=== PATIENT | male | born 1945 | race Caucasian/White ===

== ENCOUNTER 2022-09-14 14:04 | Day surgery (SDC) | payer OTHER ==
[~2022-09-14] VITALS: Ht 165.1 cm; Wt 83.4 kg
[2022-09-14] MEDS ORDERED: JARDIANCE25 MG PO (14:51)
[2022-09-14] MEDS ORDERED: ATOR10 PO (14:51)
[2022-09-14] MEDS ORDERED: AMLO5 PO (14:51)
[2022-09-14] MEDS ORDERED: METF500 PO (14:52)
[2022-09-14] MEDS ORDERED: EUTHYROX125 MCG PO (14:52)
[2022-09-14] MEDS ORDERED: BASAGLAR K100 UNIT/1 SC (14:52)
[2022-09-14] MEDS ORDERED: ROPI1 PO (14:53)
[2022-09-14] MEDS ORDERED: OMEP20ER PO (14:53)
[2022-09-14] MEDS ORDERED: TRAZ50 PO (14:53)
== END 2022-09-14 16:16 | disposition home or self-care (01) ==
LOC: ORSCSDS 14:04
PROVIDERS: Ophthalmology
PROC: 08RK3JZ Replacement of Left Lens with Synthetic Substitute, Percutaneous Approach (ICD-10-PCS; principal; 2022-09-14 15:30)
DX: H25.12 Age-related nuclear cataract, left eye (principal); H21.81 Floppy iris syndrome; I10 Essential (primary) hypertension; E11.9 Type 2 diabetes mellitus without complications; E03.9 Hypothyroidism, unspecified; Z79.899 Other long term (current) drug therapy; Z87.891 Personal history of nicotine dependence
CPT/HCPCS: 82947; J2001; J2250; J3010; J3301; J7040; V2632

== ENCOUNTER 2024-04-29 02:43 | Emergency (ER) | payer OTHER ==
[~2024-04-29] VITALS: Ht 165.1 cm; Wt 72.6 kg
[~2024-04-29 02:43] MED LIST: AMLO5 PO; ATOR10 PO; BASAGLAR K100 UNIT/1 SC; EUTHYROX125 MCG PO; JARDIANCE25 MG PO; METF500 PO; OMEP20ER PO; ROPI1 PO; TRAZ50 PO
[2024-04-29] MEDS ORDERED: Lactated Ringer's 1,000 ML IV ONE (03:10)
[2024-04-29 03:31] LABS: BASOPHILS ABSOLUTE AUTO 0.08 K/mm3 (0.00-0.23); BASOPHILS PERCENT AUTO 1 % (0-2); EOSINOPHILS ABSOLUTE AUTO 0.32 K/mm3 (0.00-0.68); EOSINOPHILS PERCENT AUTO 5 % (0-6); Hematocrit 41.5 % (37.0-53.0); IMMATURE GRAN ABSOLUTE AUTO 0.04 K/mm3 (0.00-0.10); IMMATURE GRAN PERCENT AUTO 1 % (0-1); LYMPHOCYTES ABSOLUTE AUTO 2.31 K/mm3 (0.84-5.20); LYMPHOCYTES PERCENT AUTO 35 % (21-46); MONOCYTES PERCENT AUTO 11 % (4-13); Mean Corpuscular HGB 32.2 pg (26.0-34.0); Mean Corpuscular HGB Conc 33.7 g/dL (31.5-36.5); Mean Corpuscular Volume 95 fL (80-100); Mean Platelet Volume 10.9 fL (9.1-12.4); NEUTROPHILS ABSOLUTE AUTO 3.21 K/mm3 (1.96-9.15); NEUTROPHILS PERCENT AUTO 48 % (41-73); Platelet Count 184 K/mm3 (150-400); RDW Coefficient Variation 12.2 % (11.7-14.2); Red Blood Cell Count 4.35 M/mm3 (4.30-5.90); White Blood Cell Count 6.66 K/mm3 (4.00-11.30)
[2024-04-29] MEDS ORDERED: Primidone50 MG PO (03:34)
[2024-04-29] MEDS ORDERED: ASPI81CH PO (03:35)
[2024-04-29 03:38] LABS: Albumin, Blood 3.7 g/dL (3.4-5.0); Albumin/Globulin Ratio 1.2 (0.8-1.8); Bilirubin, Total 0.9 mg/dL (0.1-1.0); Bun/Creatinine Ratio 15.3 (12.0-20.0); Calcium, Blood 9.5 mg/dL (8.5-10.1); Creatinine, Blood 1.11 mg/dL (0.60-1.20); Magnesium, Blood 1.7 mg/dL (1.6-2.4); Potassium, Blood 4.5 mmol/L (3.5-5.5); Total Protein, Blood 6.7 g/dL (6.4-8.2)
[2024-04-29 04:12] LABS: Influenza A, PCR NEGATIVE (NEGATIVE); Influenza B, PCR NEGATIVE (NEGATIVE); Resp Syncytial Virus, PCR NEGATIVE (NEGATIVE); SARS-Cov-2 (COVID-19) PCR, MMC NEGATIVE (NEGATIVE)
[2024-04-29 05:26] LABS: Source, Urine Clean Catch
[2024-04-29 05:34] LABS: Bilirubin, Urine Neg (Neg); Blood, Urine Neg (Neg); Glucose Qualitative, Urine 4+ (Neg); Ketones, Urine 3+ (Neg); Leukocyte Esterase, Urine Neg (Neg); Nitrite, Urine Neg (Neg); Protein, Urine 2+ (Neg); Specific Gravity, Urine 1.015 (1.003-1.022); Urobilinogen, Urine NORM (Normal)
[2024-04-29 05:42] LABS: Appearance, Urine Clear (Clear); Color, Urine Yellow (P-Yellow)
[2024-04-29 05:45] LABS: Bacteria Rare /hpf; Hyaline Casts 0-2 /lpf (0-2); Red Blood Cells, Urine Not Seen /hpf (0-2); Squamous Epithelial Cells Few /hpf (Few); White Blood Cells, Urine 0-2 /hpf (0-5)
== END 2024-04-29 08:32 | disposition home or self-care (01) ==
LOC: ER 02:43
PROVIDERS: Student in an Organized Health Care Education/Training Program
DX: R42 Dizziness and giddiness (principal); R55 Syncope and collapse; I10 Essential (primary) hypertension; E78.5 Hyperlipidemia, unspecified; E11.9 Type 2 diabetes mellitus without complications; K21.9 Gastro-esophageal reflux disease without esophagitis; E03.9 Hypothyroidism, unspecified; G47.00 Insomnia, unspecified; Z79.4 Long term (current) use of insulin; Z79.84 Long term (current) use of oral hypoglycemic drugs; Z79.899 Other long term (current) drug therapy
CPT/HCPCS: 0241U; 70450; 71045; 80053; 81001; 83735; 84484; 85025; 93005; 93010; 96360; 99285-25; J7120

== ENCOUNTER 2025-04-14 22:36 | Observation (INO) | payer OTHER ==
[~2025-04-14] VITALS: Ht 165 cm; Wt 79.4 kg
[~2025-04-14 22:36] MED LIST changes: +ASPI81CH PO; -EUTHYROX125 MCG PO; +LEVSOD137 PO; +Primidone50 MG PO
[2025-04-14 22:52] LABS: BASOPHILS ABSOLUTE AUTO 0.10 K/mm3 (0.00-0.23); BASOPHILS PERCENT AUTO 1 % (0-2); EOSINOPHILS ABSOLUTE AUTO 0.31 K/mm3 (0.00-0.68); EOSINOPHILS PERCENT AUTO 4 % (0-6); Hematocrit 38.6 % (37.0-53.0); Hemoglobin 13.3 g/dL (13.5-17.5); IMMATURE GRAN ABSOLUTE AUTO 0.06 K/mm3 (0.00-0.10); IMMATURE GRAN PERCENT AUTO 1 % (0-1); LYMPHOCYTES ABSOLUTE AUTO 2.49 K/mm3 (0.84-5.20); LYMPHOCYTES PERCENT AUTO 29 % (21-46); MONOCYTES ABSOLUTE AUTO 0.91 K/mm3 (0.16-1.47); MONOCYTES PERCENT AUTO 10 % (4-13); Mean Corpuscular HGB Conc 34.5 g/dL (31.5-36.5); Mean Corpuscular Volume 93 fL (80-100); NEUTROPHILS ABSOLUTE AUTO 4.88 K/mm3 (1.96-9.15); NEUTROPHILS PERCENT AUTO 56 % (41-73); NRBC ABSOLUTE 0.00 K/mm3 (0.00-0.02); NRBC Auto 0.0 /100 WBC (0.0-0.2); Platelet Count 187 K/mm3 (150-400); RDW Coefficient Variation 12.5 % (11.7-14.2); RDW Standard Deviation 43.0 fL (35.1-46.3)
[2025-04-14] MEDS ORDERED: NS 1,000 ML IV ONE (23:24)
[2025-04-14] MEDS ORDERED: NS 1,000 ML IV SCH ×2 (23:25→23:35)
[2025-04-14 23:34] LABS: Anion Gap 11.0 mmol/L (3-11); Blood Urea Nitrogen 19.0 mg/dL (8-24); CO2, Blood 23.0 mmol/L (21-32); Calcium, Blood 8.9 mg/dL (8.5-10.1); Chloride, Blood 107.0 mmol/L (98-108); Creatinine, Blood 1.2 mg/dL (0.60-1.20); Glucose, Blood 181.0 mg/dL (70-99); Magnesium, Blood 1.8 mg/dL (1.6-2.4); Potassium, Blood 3.9 mmol/L (3.5-5.5); Sodium, Blood 137.0 mmol/L (136-145); Thyroid Stimulating Hormone 26.6 uIU/mL (0.360-4.800)
[2025-04-15] VITALS (7 sets, daily range): BP systolic 119–146; BP diastolic 62–81
[2025-04-15] MEDS ORDERED: FLU VACC TS2025-26(6MOS UP)/PF 45 MCG/0.5 ML SYRINGE IM SCH (01:00)
[2025-04-15] MEDS ORDERED: Ondansetron HCl 2 MG / ML 2ML Vial IV PRN (01:00)
[2025-04-15] MEDS ORDERED: NS 1,000 ML IV ONE (01:00)
[2025-04-15] MEDS ORDERED: Potassium Chl 20MEQ/Water100ML 100 ML IV STA (01:13)
[2025-04-15] MEDS ORDERED: Mag Sulfate 1 GM/D5% 100ML 100 ML IV STA (01:13)
[2025-04-15 01:22] LABS: Phosphorus, Blood 3.5 mg/dL (2.5-4.9)
[2025-04-15 03:38] LABS: Source, Urine Clean Catch
[2025-04-15 03:56] LABS: Bilirubin, Urine Neg (Neg); Glucose Qualitative, Urine 4+ (Neg); Ketones, Urine 3+ (Neg); Leukocyte Esterase, Urine Neg (Neg); Protein, Urine 1+ (Neg); Specific Gravity, Urine 1.015 (1.003-1.022); Urobilinogen, Urine NORM (Normal)
[2025-04-15 03:58] LABS: Color, Urine Yellow (P-Yellow)
--- NOTE | 2025-04-15 04:34 | NUR ---
PATIENT ADMITTED FROM ER VIA STRETCHER ACCOMPANIED BY , AND SON, DENIES PAIN AND DISCOMFORT AT THE PRESENT TIME, ALERT AND ORIENTED X4, TELEMETRY PLACED PER DOCTOR ORDER, VOIDING CLEAR YELLOW URINE PER URINAL, URINE SENT TO LAB FOR UA AND DRUG SCREEN, LUNGS CLEAR, ABD NONDISTENDED, SOFT, BOWEL SOUNDS NORMAL IN ALL 4 QUADRANTS, AMBULATES WITH STAND BY ASSIST, USES CANE, BLOOD SUGAR MONITORED PER DOCTOR ORDERS, CALL LIGHT IN REACH , BED ALARM ON FALL PRECAUTIONS EXPLAINED TO PATIENT AND FAMILY DUE TO RECENT FALL AT HOME, BED IN LOW AND LOCKED POSITION, WILL CONTINUE TO MONITOR.
[2025-04-15] MEDS ORDERED: Potassium Chloride 10 Meq Tablet SA PO ONE (04:40)
[2025-04-15 04:49] LABS: U Amphetamine Screen Not Detected; U Barbituate Screen Not Detected; U Benzodiazapine Screen Not Detected; U Buprenorphine Screen Not Detected; U Cannabinoids Screen Not Detected; U Cocaine Screen Not Detected; U Methadone Screen Not Detected; U Methamphetamine Screen Not Detected; U Opiates Screen DETECTED; U Oxycodone Screen Not Detected; U Phencyclidine Screen Not Detected
--- NOTE | 2025-04-15 05:11 | NUR ---
PATIENT COMFORTABLY IN BED, COMFORT CARE ORDERS IN PLACE, FAMILY AT BEDSIDE, ANSWERED FAMILY QUESTIONS NEEDED, PAIN AND ANXIETY CONTROLLED WITH MEDICATION PER ORDERS, LUNG DIMINISHED, DRY OCCASSIONAL COUGH, REPOSITIONS FAMILY REQUESTS FOR COMFORT, RESP 8-10 A MIN, PAUSES NOTED THROUGHOUT THE NIGHT, CALL LIGHT IN FAMILY REACH, BED IN LOW AND LOCKED POSITON. WILL CONTINUE TO MONITOR.
[2025-04-15] MEDS ORDERED: Insulin Human Lispro 100 Units/ML 3ML Syringe SC SCH (07:30)
[2025-04-15] MEDS ORDERED: Cosyntropin 0.25 MG / ML 1ML Vial IV ONE (08:00)
[2025-04-15 08:09] LABS: BASOPHILS ABSOLUTE AUTO 0.06 K/mm3 (0.00-0.23); BASOPHILS PERCENT AUTO 1 % (0-2); EOSINOPHILS ABSOLUTE AUTO 0.13 K/mm3 (0.00-0.68); EOSINOPHILS PERCENT AUTO 2 % (0-6); Hematocrit 38.7 % (37.0-53.0); Hemoglobin 13.5 g/dL (13.5-17.5); IMMATURE GRAN ABSOLUTE AUTO 0.04 K/mm3 (0.00-0.10); IMMATURE GRAN PERCENT AUTO 1 % (0-1); LYMPHOCYTES ABSOLUTE AUTO 1.68 K/mm3 (0.84-5.20); LYMPHOCYTES PERCENT AUTO 21 % (21-46); MONOCYTES ABSOLUTE AUTO 0.75 K/mm3 (0.16-1.47); MONOCYTES PERCENT AUTO 9 % (4-13); Mean Corpuscular HGB Conc 34.9 g/dL (31.5-36.5); Mean Corpuscular Volume 94 fL (80-100); NEUTROPHILS ABSOLUTE AUTO 5.37 K/mm3 (1.96-9.15); NEUTROPHILS PERCENT AUTO 67 % (41-73); NRBC ABSOLUTE 0.00 K/mm3 (0.00-0.02); NRBC Auto 0.0 /100 WBC (0.0-0.2); Platelet Count 166 K/mm3 (150-400); RDW Coefficient Variation 12.6 % (11.7-14.2); RDW Standard Deviation 43.3 fL (35.1-46.3)
[2025-04-15 08:23] LABS: Alanine Aminotransfer (ALT/SGP 22.0 U/L (12-78); Albumin, Blood 3.6 g/dL (3.4-5.0); Albumin/Globulin Ratio 1.3 (0.8-1.8); Anion Gap 10.0 mmol/L (3-11); Aspartate Aminotrans (AST/SGOT 18.0 U/L (12-37); Bilirubin, Total 0.7 mg/dL (0.1-1.0); Blood Urea Nitrogen 17.0 mg/dL (8-24); CO2, Blood 24.0 mmol/L (21-32); Calcium, Blood 8.9 mg/dL (8.5-10.1); Chloride, Blood 106.0 mmol/L (98-108); Creatinine, Blood 1.01 mg/dL (0.60-1.20); Globulin, Blood 2.7 g/dL (2.2-4.0); Glucose, Blood 147.0 mg/dL (70-99); Potassium, Blood 4.3 mmol/L (3.5-5.5); Sodium, Blood 136.0 mmol/L (136-145); Total Protein, Blood 6.3 g/dL (6.4-8.2)
[2025-04-15] MEDS ORDERED: Enoxaparin 40 MG/0.4 ML SYR SC SCH (09:00)
--- NOTE | 2025-04-15 19:34 | NUR ---
SHIFT SUMMARY PT A&OX4, PLEASANT AND COOPERATIVE WITH CARE. PT DENIED DIZZINESS TODAY, ORTHOSTATIC BP NEGATIVE. IV FLUIDS DC. ECHO ORDERED MOST LIKELY TO BE DONE TOMORROW. VSS, SR IN 60S ON TELE. ABLE TO MAKE NEEDS KNOWN, CALL LIGHT IN REACH, SBA FOR SAFETY IN ROOM.
[2025-04-15] MEDS ORDERED: Insulin Glargine 100 Unit/ML 3 ML SYR SC SCH (21:00)
[2025-04-16 00:21] VITALS: BP 148/76
[2025-04-16 03:31] VITALS: BP 157/89
--- NOTE | 2025-04-16 05:30 | NUR ---
Shift Summary AOx4. Pleasant. Does not call for needs, instead, sets the bed alarm off all the time when he has to go urinate. Denies pain. Awaiting ECHO today. Tele: [id number] [phone]. Denies chest pain, shortness of breath. 1PA w/ FWW. Bed alarm on d/t impulsivity and + for syncope.
[2025-04-16 06:43] LABS: Anion Gap 9.0 mmol/L (3-11); Blood Urea Nitrogen 16.0 mg/dL (8-24); CO2, Blood 24.0 mmol/L (21-32); Calcium, Blood 9.0 mg/dL (8.5-10.1); Chloride, Blood 109.0 mmol/L (98-108); Creatinine, Blood 1.16 mg/dL (0.60-1.20); Glucose, Blood 158.0 mg/dL (70-99); Potassium, Blood 3.5 mmol/L (3.5-5.5); Sodium, Blood 138.0 mmol/L (136-145)
[2025-04-16 07:42] VITALS: BP 143/74
--- NOTE | 2025-04-16 10:53 | NUR ---
NOTE: SPOKE WITH THE PT'S , SHE IS UPSET THAT THE ECHO HAS NOT BEEN DONE YET AND THAT THE ORDER WAS PLACED YESTERDAY AFTERNOON. THIS NURSE LISTENED TO HER CONCERNS AND THE DOCTOR WAS NOTIFIED. THE [facility] WAS CONTACTED AND CONFIRMED THE ORDER FOR THE ECHO IS PLACED. THIS NURSE UPDATED THE PT ON THIS INFORMATION. THE BREAK NURSE ATTEMPTED TO CONTACT THE PT ADVOCATE THE STATED SHE WOULD BE INTERESTED IN SPEAKING TO HER. A MESSAGE WAS LEFT ON HER PHONE REGARDING THE REQUEST.
[2025-04-16 11:23] VITALS: BP 143/67
[2025-04-16] MEDS ORDERED: Vitamin and Mi1 EACH PO (14:46)
[2025-04-16] MEDS ORDERED: HYDR1TAB94 PO (14:46)
[2025-04-16] MEDS ORDERED: FISH OIL 1,0001 EA10 PO (14:47)
[2025-04-16] MEDS ORDERED: MAGNESIUM OXID500 MG PO (14:47)
[2025-04-16 16:20] VITALS: BP 127/76
--- NOTE | 2025-04-16 17:41 | NUR ---
SHIFT SUMMARY PT AOX4, SBA TO THE BR. BA ON. NO EVENTS PER TELE. ECHO DONE TODAY, CARDIOLOGY CONSULT TOMORROW. PT WANTED TO LEAVE ONCE THE ECHO WAS READ BUT IT WAS NOT READ UNTIL LATE IN THE SHIFT. HIS WAS UPSET WITH THIS BUT HE DECIDED TO STAY SO HE COULD HAVE THE CONSULT. PT CALLS AND MAKES HIS NEEDS KNOWN. REPOSITIONS SELF IN BED. CALL LIGHT WITHIN REACH, BED LOCKED AND IN THE LOWEST POSITION. WILL REPORT TO ONCOMING NURSE.
[2025-04-16 20:42] VITALS: BP 157/80
[2025-04-17 00:23] VITALS: BP 142/73
[2025-04-17 05:35] VITALS: BP 146/74
--- NOTE | 2025-04-17 05:48 | NUR ---
SHIFT SUMMARY PATIENT A/O X3-4. PLEASANT AND COOPERATIVE WITH CARE. FLOOR COVERING CONTRACTOR DR ORDERED MELATONIN PER PT REQUEST FOR SLEEP. PT REPORTS THAT HE SLEPT WELL. VITAL STABLE THROUGHOUT THE NIGHT. TELE REPORTS SINUS RHYTHM WITH NO EVENTS. VOIDING WELL. NO ACUTE CHANGES. PT UTILIZING CALL LIGHT, BED IN LOWEST POSITION. WILL REPORT TO DAY SHIFT RN.
[2025-04-17 07:31] VITALS: BP 137/92
--- NOTE | 2025-04-17 07:40 | NUR ---
NOTE: SPOKE WITH DR. RODAS AT 0740 AND HE CONFIRMED HE IS GOING TO CALL CARDIOLOGY FOR A CONSULT.
[2025-04-17 12:05] VITALS: BP 146/71
[2025-04-17 13:24] LABS: Ferritin, Serum 36.0 ng/mL (26-388); Total Iron Binding Capacity 308.0 ug/dL (250-450)
[2025-04-17] MEDS ORDERED: MELATONIN5 M1 PO (13:56)
--- NOTE | 2025-04-17 14:45 | NUR ---
DISCHARGE NOTE PT DISCHARGED TO HOME, PICKED UP BY HIS SON. TAKEN TO THEIR VEHICLE BY WC. MEDICATIONS FAXED TO THE PHARMACY OF HIS CHOICE. DISCHARGE INFORMATION AND EDUCATION REVIEWED WITH THE PT. IV REMOVED, TELE RETURNED. PERSONAL BELONGINGS RETURNED. CALL LIGHT WITHIN REACH, BED LOCKED AND IN THE LOWEST POSITION.
== END 2025-04-17 14:10 | disposition home or self-care (01) ==
LOC: ER 22:36 → MEDS 22:37
PROVIDERS: Emergency Medicine; Family Medicine; Internal Medicine; ADMIT Internal Medicine
DX: I95.1 Orthostatic hypotension (principal); S06.0XAA Concussion with loss of consciousness status unknown, initial encounter; W18.30XA Fall on same level, unspecified, initial encounter; I35.0 Nonrheumatic aortic (valve) stenosis; I10 Essential (primary) hypertension; E78.5 Hyperlipidemia, unspecified; E11.9 Type 2 diabetes mellitus without complications; E03.9 Hypothyroidism, unspecified; G47.33 Obstructive sleep apnea (adult) (pediatric); G25.0 Essential tremor; R00.1 Bradycardia, unspecified; K21.9 Gastro-esophageal reflux disease without esophagitis; G25.81 Restless legs syndrome; G47.00 Insomnia, unspecified; Z79.82 Long term (current) use of aspirin; Z79.84 Long term (current) use of oral hypoglycemic drugs; Z79.4 Long term (current) use of insulin; Z79.890 Hormone replacement therapy; Z79.899 Other long term (current) drug therapy
CPT/HCPCS: 36415; 70450; 71045; 80048; 80053; 80400; 82533; 82607; 82728; 82947; 83540; 83550; 83735; 83880; 84100; 84439; 84443; 85025; 93005; 93010; 93306; 96360; 96361; 96365; 96366; 96367; 96372; 96375; 97116; 97162; 97165; 99285-25; A9270; G0378; J0834; J1650; J1815; J3475; J3480; J7030